=== PATIENT | male | born 1950 | race Caucasian/White ===

== ENCOUNTER 2020-09-15 07:19 | Outpatient (CLI) | payer BC | END 2020-09-15 07:20 | disposition home or self-care (01) | LOC: LABBT 07:19 | PROVIDERS: ATTEND Surgery | DX: Z01.810 Encounter for preprocedural cardiovascular examination (principal); M48.061 Spinal stenosis, lumbar region without neurogenic claudication; M54.16 Radiculopathy, lumbar region; M71.30 Other bursal cyst, unspecified site | CPT/HCPCS: 93005; 93010 ==

== ENCOUNTER 2020-09-30 10:46 | Day surgery (SDC) | payer BC ==
[~2020-09-30 10:46] MED LIST: Dexamethasone 20 MG/5 ML VIAL ONE; Glycopyrrolate 0.2 MG/ML 5 ML SYRINGE ONE; Lidocaine 1% PF 5 ML VIAL ONE; Ondansetron PF 4 MG/2 ML Vial ONE; PHENYLEPHRINE-NS 100 MCG/ML 10 ML SYRINGE ONE; PROPOFOL 200 MG/20 ML VIAL ONE; Rocuronium Bromide 10 MG/ML (10ML VIAL) ONE; ePHEDrine 50 MG/ML VIAL ONE
[2020-09-30 11:44] LABS: #Lymphocytes 2.3 thou/uL (1.20-3.40); #Monocytes 0.6 thou/uL (0.11-0.59); #Neutrophils 2.7 thou/uL (1.40-6.50); %Basophils 0.4 % (0.0-1.0); %Eosinophils 0.7 % (0.0-10.0); %Lymphocytes 40.7 % (21.0-51.0); %Monocytes 10.4 % (0.0-10.0); %Neutrophils 47.7 % (42.0-75.0); Mean Corpuscular Hemoglobin 36.6 pg (27.0-31.0); Mean Platelet Volume 7.5 fL (7.4-10.4); Platelet Count 315 thou/uL (130-400); RBC Distribution Width 10.6 % (11.5-14.5); Red Blood Cell (RBC) Count 3.83 mill/uL (4.70-6.10); White Blood Cell (WBC) Count 5.6 thou/uL (4.8-10.8)
[2020-09-30] MEDS ORDERED: Thrombin 5000 UNITS/5 ML VIAL ONE (11:49)
[2020-09-30 11:54] LABS: PTT 35.4 sec (22.9-36.1); Prothrombin Time 13.3 sec (12.0-14.7)
[2020-09-30 12:08] LABS: Anion Gap 13 mmol/L (10-20); BUN (Urea Nitrogen) 13 mg/dL (8.4-25.7); Calc. Creatinine Clearance 80 mL/min (70-130); Calcium 9.3 mg/dL (7.8-10.44); Carbon Dioxide 23 mmol/L (23-31); Chloride 108 mmol/L (98-107); Estimated GFR-MDRD 64; Glucose 107 mg/dL (80-115); Potassium 3.8 mmol/L (3.5-5.1); Sodium 140 mmol/L (136-145)
[2020-09-30] MEDS ORDERED: Mag-Al 1200 mg/1200 mg/30 ML UDCUP PO PRN (12:30)
[2020-09-30] MEDS ORDERED: Ondansetron PF 4 MG/2 ML Vial IVP PRN (12:30)
[2020-09-30] MEDS ORDERED: Acetaminophen/Codeine 30-300mg Tablet PO PRN (12:30)
[2020-09-30] MEDS ORDERED: Acetaminophen 325 MG TAB PO PRN (12:30)
[2020-09-30] MEDS ORDERED: Bisacodyl 10 MG SUPP PR PRN (12:30)
[2020-09-30] MEDS ORDERED: traMADol HCl 50 MG TAB PO PRN (12:30)
[2020-09-30] MEDS ORDERED: Milk Of Magnesia 30 ML UDCUP PO PRN (12:30)
[2020-09-30] MEDS ORDERED: Morphine 2 MG/ML VIAL SLOW IVP PRN (12:30)
[2020-09-30] MEDS ORDERED: hydrALAZINE 20 MG/ML VIAL SLOW IVP PRN (12:32)
[2020-09-30] MEDS ORDERED: Fentanyl 100 MCG/2 ML VIAL ONE ×6 (12:40→19:54)
[2020-09-30] MEDS ORDERED: Ondansetron PF 4 MG/2 ML Vial ONE (15:42)
[2020-09-30] MEDS ORDERED: Promethazine HCl 25 MG/ML VIAL ONE (15:58)
[2020-09-30] MEDS ORDERED: HYDROmorphone 2 MG/ML VIAL ONE (16:47)
[2020-09-30] MEDS: Sodium Chloride 0.9% 1,000 ML IV SCH (20:36)
[2020-09-30] MEDS: CEFAZOLIN 2 GM in Premix Bag 1 BAG IVPB SCH (20:41)
[2020-09-30] MEDS ORDERED: Lisinopril 20 MG TAB PO SCH (21:00)
[2020-09-30 21:39] VITALS: BMI 29.5
[2020-09-30] MEDS: tiZANidine HCl 4 MG TAB PO PRN (22:19)
[2020-09-30] MEDS: HYDROcodone/Acetaminophen 7.5/325 mg Tablet PO PRN (22:19)
[2020-10-01] MEDS: Sodium Chloride 0.9% 1,000 ML IV SCH (01:19)
[2020-10-01] MEDS: HYDROcodone/Acetaminophen 7.5/325 mg Tablet PO PRN ×2 (03:38→08:39)
[2020-10-01] MEDS: CEFAZOLIN 2 GM in Premix Bag 1 BAG IVPB SCH (04:24)
[2020-10-01] MEDS: tiZANidine HCl 4 MG TAB PO PRN (08:39)
[2020-10-01] MEDS ORDERED: Amlodipine 5 MG TAB PO SCH (09:00)
[2020-10-01] MEDS ORDERED: Spironolactone 25 MG TAB PO SCH (09:00)
--- NOTE | 2020-10-01 11:09 | PRG ---
DATE OF SERVICE: 10/01/2020 Mr. Osorio is doing well postoperative day 1. His strength is intact. He is voiding on his own, ambulating and tolerating orals. We will plan for discharge. Job ID: [id number]
[2020-10-01 11:28] VITALS: BP 122/77; TEMP 97.5
--- NOTE | 2020-10-01 11:40 | OP ---
DATE OF PROCEDURE: 09/30/2020 PARTS SALESPERSON: Kylee Olson PA-C PREPROCEDURE DIAGNOSES: Lumbar stenosis, low back and leg pain, lumbar synovial cyst. POSTPROCEDURE DIAGNOSES: Lumbar stenosis, low back and leg pain, lumbar synovial cyst. PROCEDURES PERFORMED: 1. L2-L3 and L3-L4 laminectomies, partial facetectomies, foraminotomies. 2. Left L4-L5 synovial cyst resection. 3. Right L4-L5 hemilaminotomy, foraminotomy. DESCRIPTION OF PROCEDURE: After informed consent was obtained from the patient, the patient was brought to the OR. Proper patient, pause, and identification were carried out. The patient was then placed under excellent general endotracheal anesthesia and positioned prone on the OR table. All appropriate points were padded. We identified the L2 through L5 dorsal spines and lamina. Linear peralta were made over this region. This area was sterilely cleansed, prepared, and draped. Proper patient, pause, and identification were carried out. The wound was then opened with a combination of sharp, monopolar, and blunt dissection, L2, L3, L4, L5 dorsal spines and lamina removed. Synovial cyst was resected in the left L4-L5 segment. The right L4-L5 hemilaminotomy and foraminotomy were performed with excellent decompression and common dural tube at the L2, L3, L4, L5 nerve roots bilaterally. Copious irrigation occurred throughout as did maximizing hemostasis. The wound was then closed in anatomic layers following the sprinkling of vancomycin powder. The patient emerged from anesthesia. Job ID: [id number]
== END 2020-10-01 11:32 | disposition home or self-care (01) ==
LOC: SDC 10:46 → SURG A 12:30 → SDC 10-01 11:32
PROVIDERS: ATTEND Surgery
PROC: 01NB0ZZ Release Lumbar Nerve, Open Approach (ICD-10-PCS; principal; 2020-09-30)
DX: M48.061 Spinal stenosis, lumbar region without neurogenic claudication (principal); M71.38 Other bursal cyst, other site; M54.16 Radiculopathy, lumbar region; Z79.899 Other long term (current) drug therapy
CPT/HCPCS: 36415; 76000; 80048; 85025; 85610; 85730; 93005; 93010; J0690; J1100; J1170; J2405; J2550; J2704; J3010; J3370; J3490